=== PATIENT | male | born 1990 | race Caucasian/White ===

== ENCOUNTER 2021-10-07 13:02 | Emergency (ER) | payer MEDICAID ==
[~2021-10-07] VITALS: Ht 172.7 cm; Wt 64.0 kg
[2021-10-07] MEDS ORDERED: TETANUS, DIPHTHERIA, PERTUSSIS VAC/PF 0.5ML (>10YR OLD) IM ONE (15:00)
[2021-10-07] MEDS ORDERED: ACETAMINOPHEN WITH CODEINE 300/30MG TABLET PO ONE (15:00)
[2021-10-07] MEDS ORDERED: LIDOCAINE HCL/PF 1% 10 MG/ML 5ML VIAL INFIL ONE (15:00)
[2021-10-07] MEDS ORDERED: BACITRACIN ZINC OINT UDPKT TOP ONE (15:00)
[2021-10-07] MEDS ORDERED: AMOX1TAB16 MT (16:25)
[2021-10-07 16:38] VITALS: BP 112/78
== END 2021-10-07 16:38 | disposition home or self-care (01) ==
LOC: ER 13:02
DX: S01.511A Laceration without foreign body of lip, initial encounter (principal); S09.8XXA Other specified injuries of head, initial encounter; M25.551 Pain in right hip; M25.521 Pain in right elbow; Y08.89XA Assault by other specified means, initial encounter; Y93.9 Activity, unspecified; Y92.89 Other specified places as the place of occurrence of the external cause; Z98.890 Other specified postprocedural states
CPT/HCPCS: 12011; 73080; 73502; 90471; 90715; 99284; J3490

== ENCOUNTER 2021-10-14 12:03 | Emergency (ER) | payer MEDICAID ==
[~2021-10-14] VITALS: Ht 175.3 cm; Wt 60.0 kg
[~2021-10-14 12:03] MED LIST: AMOX1TAB16 MT
[2021-10-14 12:12] VITALS: BP 117/66
== END 2021-10-14 13:03 | disposition home or self-care (01) ==
LOC: ER 12:03
DX: Z48.02 Encounter for removal of sutures (principal); Z98.890 Other specified postprocedural states
CPT/HCPCS: 99281